=== PATIENT | male | born 1990 | race African-American/Black ===

== ENCOUNTER 2020-02-16 14:50 | Emergency (ER) | payer MEDICAID ==
[~2020-02-16] VITALS: Ht 182.9 cm; Wt 81.6 kg
[~2020-02-16 14:50] MED LIST: PROM25TA5 PO
[2020-02-16 15:30] VITALS: BP 138/87
== END 2020-02-17 03:16 | disposition left against medical advice (07) ==
LOC: ER 14:50 → EDBD 14:50 → ER 02-17 03:16
DX: F19.239 Other psychoactive substance dependence with withdrawal, unspecified (principal); Z53.21 Procedure and treatment not carried out due to patient leaving prior to being seen by health care provider